=== PATIENT | female | born 1990 | race Caucasian/White ===

== ENCOUNTER 2019-03-31 09:03 | Emergency (ER) | payer MEDICAID ==
[~2019-03-31] VITALS: Ht 149.9 cm; Wt 75.2 kg
[2019-03-31] MEDS ORDERED: SODIUM CHLORIDE FLUSH 10ML SYR IVF ONE (09:30)
[2019-03-31 10:01] LABS: BASOPHILS # (AUTO) 0.03 x10^3/uL (0-0.1); BASOPHILS % (AUTO) 0 % (0-1); EOSINOPHILS # (AUTO) 0.13 x10^3/uL (0-0.4); EOSINOPHILS % (AUTO) 2 % (1-7); LYMPHOCYTES # (AUTO) 1.82 x10^3/uL (1-3.4); LYMPHOCYTES % (AUTO) 25 % (22-44); MD NO; MEAN CORPUSCULAR HEMOGLOBIN 28.7 pg (27.0-34.8); MEAN CORPUSCULAR HGB CONC 33.1 g/dL (32.4-35.8); MEAN CORPUSCULAR VOLUME 86.6 fL (80-100); MEAN PLATELET VOLUME 8.5 fL (7.4-10.4); MONOCYTES # (AUTO) 0.42 x10^3/uL (0.2-0.8); MONOCYTES % (AUTO) 6 % (2-9); NEUTROPHILS # (AUTO) 4.94 x10^3/uL (1.8-6.8); NEUTROPHILS % (AUTO) 67 % (42-75); PLATELET COUNT 311 x10^3/uL (130-400); RED BLOOD COUNT 4.42 x10^6/uL (3.82-5.3); RED CELL DISTRIBUTION WIDTH 13.4 % (9.6-15.2)
--- NOTE | 2019-03-31 10:06 | NUR ---
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
[2019-03-31 10:15] LABS: ALBUMIN 4.1 g/dL (3.4-5.0); ANION GAP 9 mmol/L (5-15); CALCIUM 9.1 mg/dL (8.5-10.1); CHLORIDE 109 mmol/L (98-107)
--- NOTE | 2019-03-31 10:30 | NUR ---
pt continues to be in and out of rr to collected ua sample. gait is steady.
--- NOTE | 2019-03-31 10:58 | NUR ---
pt continues to be in and out of rr to collected ua sample. gait is steady.
[2019-03-31] MEDS ORDERED: KETOROLAC 30 MG/1 ML IVPush ONE (11:00)
[2019-03-31] MEDS ORDERED: MORPHINE SULFATE 4 MG/ML, 1ML IVPush PRN (11:00)
[2019-03-31] MEDS ORDERED: ONDANSETRON 2MG/ML, 2ML IVPush ONE (11:00)
--- NOTE | 2019-03-31 11:15 | NUR ---
pt asked to remain in room, but continues to be in and out of rr to collect ua sample. gait is steady.
[2019-03-31] MEDS ORDERED: MORPHINE SULFATE 4 MG/ML, 1ML ONE (11:17)
[2019-03-31] MEDS ORDERED: KETOROLAC 30 MG/1 ML ONE (11:17)
[2019-03-31] MEDS ORDERED: ONDANSETRON 2MG/ML, 2ML ONE (11:17)
--- NOTE | 2019-03-31 11:25 | NUR ---
pt back in room. ua sample collected and sent.
--- NOTE | 2019-03-31 11:26 | NUR ---
pt to ed for right sided flank pain, nausea and vomiting since this morening. pt states it feels like previous kidney stones. pt currently states she thinks she has passed the stone and no longer has any pain, nausea or vomiting. pt resting comfortably in gurney. pt connected to monitors. vss. awaiting results.
--- NOTE | 2019-03-31 11:31 | NUR ---
pt declining pain and nausea meds at this time. pt educated to inform rn if seh feels she needs pain or nausea medications.
--- NOTE | 2019-03-31 12:13 | NUR ---
pt medicted with zofran per request. vss. no other needs expressed. awaiting ua results.
[2019-03-31 12:17] LABS: MICROSCOPIC INDICATED
[2019-03-31 12:19] LABS: CULTURE INDICATED? YES
--- NOTE | 2019-03-31 13:00 | NUR ---
pt resting in room. vss. Dr. Barrett to bs to update on results and poc. plan to dc.
--- NOTE | 2019-03-31 13:24 | NUR ---
Patient given discharge instructions and they have confirmed that they understand the instructions. Patient ambulatory with steady gait. Pt left with d/c paperwork, prescription, and all personal belongings. NADN. Pt encouraged to return to ED if symptoms worsen or change.
[2019-03-31 13:25] VITALS: BP 110/64
== END 2019-03-31 13:27 | disposition home or self-care (01) ==
LOC: ED 12:35
DX: R31.29 Other microscopic hematuria (principal); R30.0 Dysuria
CPT/HCPCS: 36415; 80048; 81001; 82040; 84703; 85025; 87086; 96372; 99283; J2405